=== PATIENT | female | born 1995 ===

== ENCOUNTER 2016-06-28 12:05 | Day surgery (SDC) | payer MEDICAID, OTHER ==
[2016-06-15 09:42] VITALS: BMI 31.1
[2016-06-28] MEDS ORDERED: HYDROmorphone 0.5 mg/0.5 ml ISec IVP PRN (20:17)
[2016-06-28] MEDS ORDERED: Lactated Ringer's 1,000 ML IV ONE (20:30)
[2016-06-28] MEDS ORDERED: Bupivacaine 0.5% Inj(30mL) ONE (20:43)
[2016-06-28] MEDS ORDERED: ceFAZolin IV 1 gm in Dextrose 50 ML IVPB ONE (21:05)
[2016-06-28] MEDS ORDERED: Oxycodone/Acetaminophen 5/325 mg Tab PO PRN ×2 (22:06)
--- NOTE | 2016-06-28 22:08 | PCM.SURG1 ---
Surgeon's Initial Post Op Note - Surgeon's Notes Surgeon: Blu MAC Senior Account Clerk: Greyson PGY2, Sandrita PGY3 Type of Anesthesia: General LMA Pre-Operative Diagnosis: Fifth metatarsal base fracture, right Operative Findings: See dictation Post-Operative Diagnosis: SAME Operation Performed: ORIF fifth metatarsal fracture, right Specimen/Specimens Removed: None Estimated Blood Loss: EBL {In ML}: 5 Blood Products Given: N/A Drains Used: No Drains Post-Op Condition: Good Date of Surgery/Procedure: 06/28/16 Time of Surgery/Procedure: 20:00
--- NOTE | 2016-06-28 22:09 | CP.PCM.DIS ---
Provider - Provider Attending physician: Mary Anne Hurt DPM Time Spent in preparation of Discharge (in minutes): 25 Diagnosis - Discharge Diagnosis (1) Metatarsal bone fracture Status: Acute Hospital Course - Hospital Course Hospital Course: Patient tolerated anesthesia and proedure well and was transported to the PACU with VSS and NVSI to the right foot. patient is to receive pop block in the PACU per anesthesia. Patient has Rx in chart NWB to the RLE to call for f/u appt for Dr. Hurt's clinic in 1 week. Discharge Exam - Neurological Exam Neurological exam: Alert, Oriented x3 - Psychiatric Exam Psychiatric exam: Normal Affect, Normal Mood - Skin Skin Exam: Normal Color, Warm - Additional Findings Additional findings: neurovascular status intact. Discharge Plan - Follow Up Plan Condition: GOOD Disposition: HOME/ ROUTINE Additional Instructions: Patient tolerated anesthesia and proedure well and was transported to the PACU with VSS and NVSI to the right foot. patient is to receive pop block in the PACU per anesthesia. Patient has Rx in chart NWB to the RLE to call for f/u appt for Dr. Hurt's clinic in 1 week. Referrals: Mary Anne Hurt DPM [Staff Provider] -
--- NOTE | 2016-06-28 22:36 | PCM.ANESB2 ---
Popliteal Nerve Block - Popliteal Nerve Block Date of Procedure: 06/28/16 Procedure Performed: Popliteal Nerve Block Right - Procedure Popliteal Nerve Block: This procedure was explained to the patient that it is for post-operative pain management. Consent was obtained after a thorough discussion with the patient regarding the benefits and possible complications of local anesthetic block of the sciatic nerve at the popliteal level. The patient was brought to the operating room and standard monitors are applied. Time-out was held with the circulating nurse to confirm the correct surgery and the appropriate block. After applying oxygen by nasal cannula and administering IV Sedation, patient's operative leg was gently raised and supported and the groove in between the biceps femoris and vastus lateralis muscles was carefully palpated. The skin approximately 8cm above the popliteal crease was then marked. The ultrasound transducer was then applied to the posterior thigh approximately 8cm above the popliteal crease in the transverse plane and the sciatic nerve before its division was visualized lateral to the popliteal artery and in between the bicep femoris and semimembranosus/semitendinosus muscles. After identification, the lateral portion of the thigh was prepped with chloraprep and Lidocaine 1% was injected subcutaneously for topical anesthesia. At this point, a # 21 gauge Stimuplex insulated 4 inch needle was inserted into pre-marked area and advanced in a perpendicular direction. The needle was inserted above the ultrasound transducer in-plane towards the sciatic nerve in a [id number] direction. Needle advancement was performed carefully under direct ultrasound visualization. After repeated negative aspiration, ___5__cc of __0.5% _bupivicaine was injected and this was flowed with _10__cc of __0.5% _ bupivicaine. Under ultrasound guidance the local anesthetics were observed tenting the epidural sheath and surrounding the roots of the sciatic nerve. The needle was removed intact and sterile dressing was applied. The patient tolerated the popliteal nerve block well with stable vital signs, no complaints, no paresthesias or other sequalae.
[2016-06-28 23:19] VITALS: BP 111/72; PULSE 72; RESP 18; TEMP 98; O2SAT 99
--- NOTE | 2016-06-29 11:32 | RAD ---
PROCEDURE: Right Foot Radiographs. HISTORY: s/p right foot orif COMPARISON: None. FINDINGS: BONES: There is lateral sideplate with 5 horizontal screws traversing the proximal and mid 5th metatarsal. . The 5th metatarsal base nondisplaced fracture is depicted on the lateral view. No callus formation appreciated JOINTS: First metatarsal-phalangeal joint osteoarthrosis SOFT TISSUES: Normal. OTHER FINDINGS: None. IMPRESSION: Status post open reduction and internal fixation of a nondisplaced 5th metatarsal base fracture. No callus grossly apparent
--- NOTE | 2016-07-02 09:18 | OP ---
PROCEDURE DATE: 06/28/2016 PREOPERATIVE DIAGNOSIS: Right foot fifth metatarsal base fracture. POSTOPERATIVE DIAGNOSIS: Right foot fifth metatarsal base fracture. PROCEDURE PERFORMED: Right foot fifth metatarsal open reduction internal fixation. SURGEON: Dr. Mary Anne Hurt. ASSISTANTS: 1. Matthieu Rubi, PGY-2. 2. Carla Ba, PGY-3. ANESTHESIA: General LMA. INDICATIONS: The patient is a 21-year-old female with the above-mentioned diagnosis. The patient bolden s exhausted all forms of conservative treatment at this time, which further surgical intervention is for the condition listed above. After careful explanation of risks, benefits, and complications for the proposed procedure, patient signed the consent form. All questions and concerns were addressed a t this time. Prior to taking patient to the OR, n.p.o. status was verified and preoperative antibiot ics were given. PREPARATION: The patient was brought to the operating room and placed on the operating table in supi ne position. A pneumatic thigh tourniquet was placed on the patient's right side at 350 mmHg, and fo llowing induction of general sedation, the right foot was prepped and draped in normal sterile manner and the procedure began. PROCEDURE #1: Right foot fifth metatarsal base fracture, ORIF. At this time, attention was first di rected to the dorsolateral aspect of the patient's right foot directly overlying the base of the fift h metatarsal. At this time, intraoperative fluoroscopy was used to identify the dorsal and most plan tar aspects of the fifth metatarsal and to identify the fracture line. Following this, utilizing a # 15 blade, a roughly 4 cm long incision was made directly overlying the base of the fifth metatarsal. This incision was then carried deep down to the level of the periosteum of the fifth metatarsal, lorenza ing sure to retract all vital neurovascular structures and all bleeders were ligated as necessary. C areful attention was paid to the base of the fifth metatarsal to make sure not to reflect off any of the brevis attachment and utilizing a #15 blade, a periosteal incision was made along the lateral asp ect of the fifth metatarsal. Utilizing a Averill elevator and sharp dissection, the periosteum was ref lected away from the fifth metatarsal and the fracture site was brought into the surgical field. The fracture was noted to be at the base of the fifth metatarsal. Following this, with utilization of i ntraoperative fluoroscopy, a Synthes hook plate was placed and a Synthes ulnar hook plate was placed across the fracture site. The hooks were attached into the most proximal ____ of the fifth metatarsa l and by use of compression ____ manual compression ____ the hook plate was placed across the fractur e site and the fracture site was noted to be compressed across. During this, the use of intraoperativ e fluoroscopy allowed further reduction of the fracture site in all planes as well to make sure there was good alignment. The foot plate was then temporarily fixated and two 12-mm nonlocking Synthes sc rews were placed across the plate first and then following this, three 10-mm locking screws were plac ed proximally and distally in the plate to secure the plate along the fifth metatarsal. Following th is, the temporary fixation was removed and it was noted that there was adequate reduction of the frac ture site and the plate was situated along the fifth metatarsal in good alignment to allow for proper healing of the fracture site. Following this, the wound was then flushed with copious amounts of no rmal sterile saline. The wound was then closed with 3-0 Vicryl, 4-0 Vicryl and 4-0 nylon in a normal manner. POSTOPERATIVE CONDITION: The patient tolerated anesthesia and procedure well and was transferred to the recovery room with vital signs stable and neurovascular status intact to the right foot. This pa tient will follow up with Dr. Hurt in the clinic as previously discussed with the patient. Matthieu Rubi DPM Mary Anne Hurt DPM cc: [id number] TT: 07/01/2016 21:25:39 dylon
== END 2016-06-28 23:40 | disposition home or self-care (01) ==
LOC: C.SDS 12:05
PROVIDERS: ATTEND Podiatrist Foot & Ankle Surgery
DX: S92.351A Displaced fracture of fifth metatarsal bone, right foot, initial encounter for closed fracture (principal); W01.0XXA Fall on same level from slipping, tripping and stumbling without subsequent striking against object, initial encounter
CPT/HCPCS: 28485; 73630; 97116; 97161; G8978; G8979; G8980; J0690; J7120